=== PATIENT | male | born 1975 | race Caucasian/White ===

== ENCOUNTER 2021-03-12 13:58 | Inpatient (IN) | payer MEDICARE ==
[~2021-03-12] VITALS: Ht 177.8 cm; Wt 63.5 kg
[~2021-03-12 13:58] MED LIST: ATIVAN 1MG TABLE1 MG PO; ATIVAN1 MG PO; CEFDINIR300 MG PO; CEPHALEXIN500 MG PO; CLINDAMYCIN HC150 MG PO; COLACE100 MG PO; DOXYCYCLINE HY100 MG PO; ELIMITE 5% CREA60 GM TOP; FLECTOR TOPICAL1 EA TD; LEVAQUIN500 MG PO; METOPROLOL TART25 MG PO; NAPROSYN500 MG PO; NEURONTIN 400400 MG PO; NEURONTIN800 MG PO; NORCO 5-325 TA1 EACH PO; NORCO 7.5-3251 EACH PO; NORFLEX 100 MG100 MG PO; PHENERGAN 25 MG25 M1 PO; PREDNISONE 50 M50 MG PO; ZYRTEC10 MG PO
[2021-03-12 14:32] LABS: HEMOGLOBIN 13.4 gm/dl (14.0-17.5); RED BLOOD COUNT 4.52 M/UL (4.20-5.50); WHITE BLOOD COUNT 8.6 K/UL (4.5-11.0)
[2021-03-12 15:01] LABS: BUN/CREATININE RATIO 12 (0-10)
[2021-03-12 18:48] LABS: MONONUCLEAR CELLS 6.8 (75-100); POLYMORPHONUCLEAR % 93.2 (0-25); RBC (AUTOMATED) 12300 (0-2000); WBC (AUTOMATED) 17998 (0-200)
[2021-03-13 04:14] LABS: HEMOGLOBIN 12.8 gm/dl (14.0-17.5); RED BLOOD COUNT 4.37 M/UL (4.20-5.50); WHITE BLOOD COUNT 7.1 K/UL (4.5-11.0)
[2021-03-13 04:44] LABS: BUN/CREATININE RATIO 13 (0-10)
[2021-03-14 06:39] LABS: HEMOGLOBIN 13.2 gm/dl (14.0-17.5); RED BLOOD COUNT 4.75 M/UL (4.20-5.50)
[2021-03-14 06:52] LABS: BUN/CREATININE RATIO 16 (0-10)
[2021-03-14 11:09] LABS: PROTEIN, BODY FLUID 4.2 g/dL (.); URIC ACID, BODY FLUID 4.3 mg/dL (.)
[2021-03-15 03:07] LABS: BUN/CREATININE RATIO 10 (0-10)
[2021-03-16 05:32] LABS: BUN/CREATININE RATIO 10 (0-10)
[2021-03-17 04:28] LABS: BUN/CREATININE RATIO 12 (0-10)
[2021-03-17] MEDS ORDERED: HYDROCODON-ACE1 EAC2 PO (10:48)
[2021-03-17] MEDS ORDERED: ZYVOX600 MG PO (10:51)
[2021-03-17] MEDS ORDERED: ENDOCET 7.5-321 EACH PO (15:51)
== END 2021-03-17 18:33 | disposition home or self-care (01) | DRG 501 ==
LOC: ER1 13:58 → MED SURG 4 18:18 → CDU 18:18 → MED SURG 4 20:26
PROVIDERS: Emergency Medicine; Orthopaedic Surgery; Physician Assistant; Physician Assistant Medical; ADMIT Internal Medicine Infectious Disease
PROC: 0MBP0ZZ Excision of Left Knee Bursa and Ligament, Open Approach (ICD-10-PCS; principal; 2021-03-13 13:15)
DX: M71.162 Other infective bursitis, left knee (principal); L03.116 Cellulitis of left lower limb; I10 Essential (primary) hypertension; E87.6 Hypokalemia; F41.9 Anxiety disorder, unspecified; Z20.828 Contact with and (suspected) exposure to other viral communicable diseases; M25.462 Effusion, left knee; Z89.512 Acquired absence of left leg below knee
CPT/HCPCS: 36415; 73564; 80048; 80053; 80202; 82945; 83615; 83735; 84157; 85025; 85027; 85652; 86140; 87040; 87070; 87077; 87186; 87205; 99285; J0692; J1100; J1170; J1885; J2001; J2250; J2270; J2405; J2704; J3010; J3370; J7030; J7070; J7120; U0002

== ENCOUNTER 2021-05-12 15:47 | Inpatient (IN) | payer MEDICARE, MEDICAID ==
[~2021-05-12] VITALS: Ht 177.8 cm; Wt 63.5 kg
[~2021-05-12 15:47] MED LIST changes: +ENDOCET 7.5-321 EACH PO; +HYDROCODON-ACE1 EAC2 PO; +ZYVOX600 MG PO
[2021-05-12 17:04] LABS: HEMOGLOBIN 14.9 gm/dl (14.0-17.5); RED BLOOD COUNT 5.03 M/UL (4.20-5.50); WHITE BLOOD COUNT 9.1 K/UL (4.5-11.0)
[2021-05-12 17:17] LABS: BUN/CREATININE RATIO 10 (0-10)
[2021-05-13 06:49] LABS: HEMOGLOBIN 14.7 gm/dl (14.0-17.5); RED BLOOD COUNT 5.02 M/UL (4.20-5.50); WHITE BLOOD COUNT 6.8 K/UL (4.5-11.0)
[2021-05-13 07:48] LABS: BUN/CREATININE RATIO 12 (0-10)
--- NOTE | 2021-05-13 19:55 | NUR ---
Late Entry At 0640 I gave report to [facility] nurse Mara Hobbs in regards to suspecting that the patient was self medicating. He was falling asleep sitting up during my admission process and assessment upon arrival to floor. At one point during my shift I found him sitting Style on the bed leaned over with face in cover and his IV pulled out. I had asked the patient if he had taken anything additional to the medications that we have been giving him. He responded with "NO!" Then later wanted to speak with the powerhouse attendant Bryce Fernandez. Bryce spoke with the patient and he was calm and didn't want to pursue a complaint but that he wanted the doctor to continue his home medications of Neurontin and Hydrocodone. Dr. Patel continued the medications from his home med list that consisted of Neurontin and Hydrocodone. The patient allowed me to come in and hook his morning dose of antibiotics up after his new IV was placed. No complaints at that time. When giving report to Hazel Hobbs RN on 05/13/21 at 0640 I informed her of my suspicions and that I hadn't gave him any additional medications due to the patient not being able to stay awake. She was notified that Dr. Bennett would potentially schedule surgery today for this patient.
--- NOTE | 2021-05-13 23:03 | NUR ---
1839 OFF GOING NURSE STATED PT WAS IN BATHROOM EXCESSIVELY THROUGHOUT THE DAY AFTER SHE PROVIDED PAIN MEDICATIONS. STATED PT WAS NPO, IS GOING TO HAVE SURGERY AT SOME POINT CONSENT AND CHECKLIST NOT COMPLETE. 1844 INTRODUCED MYSELF TO PATIENT HE WAS LETHARGIC BUT EASILY AWAKED WHEN SPOKEN TOO. 1899 DURING SHIFT CHANGE ORRN ARRIVED TO TAKE PATIENT TO OR. I ASKED OFFGOING RN IF PT WAS ALL SET TO GO. SHE SHOOK HER HEAD YES. ASKED OR IF THERE WAS ANYTHING SHE NEEDED FROM ME STATED SHE WOULD GET CONSENT. WHEN PT RETURNED FROM OR. PT WAS AGITATED VERBALLY AGGRESSIVE WAS WIDE AWAKE EATING SANDWICH AND DRINKING WATER REQUESTED PAIN MEDS. PAIN MEDS NOT PROVIDED DUE TO MEDICATIONS PROVIDED IN OR PRIOR TO RETURN.
--- NOTE | 2021-05-14 01:04 | NUR ---
This RN requested assistance from Customer Specialist and Security to deesculate patient. Pt woke up called out for pain med and food. This RN was responding to another pt w/chest pain. Pt stated he did not receive food I advised pt he received food when he returned from OR we could get him something from the fridge. pt states he wants a tray advised pt he would not be able to get tray at this time as kitchen was closed. pt started swearing at this RN over call system. i requested pt stop swearing in which he continued I advised i would hang up if he did not stop and did so. I answered several calls with him being verbally aggressive. In which I contacted house and security for assistance. Pt came yelling out door, slammed door then yelled at doorway again. This RN provided meds per oct and pain medication. Pt was on phone with relative listening. Relative stated he can request a new nurse and I transferred care with another nurse.
--- NOTE | 2021-05-14 01:10 | NUR ---
Report taken from Jody Joyce RN at this time. Accepted patient under my care at this point in time.
[2021-05-14 05:34] LABS: RED BLOOD COUNT 4.75 M/UL (4.20-5.50); WHITE BLOOD COUNT 7.1 K/UL (4.5-11.0)
[2021-05-14 05:54] LABS: BUN/CREATININE RATIO 9 (0-10)
--- NOTE | 2021-05-14 12:11 | NUR ---
@1004: Dr. Mitchell notified reguarding ortho signing off on patient and patients wish to leave AMA. Dr. Mitchell stated he would "review chart". Patient notified of this at this time. @1200 nurse () notified of patient getting on elevator. Nurse () went into room and observed patient belongings gone. At this time nurse () and tech (Levy) went outside to look for patient and observed him getting into truck and leaving parking lot. Patient left with IV catheter intact. chief maintenance supervisor notifed (Marnie). [place] stated to "call patient and next of kin to explain to come back to the hospital to remove the IV catheter." Patient called and answered and then hung the phone up. Patients next of kin called at this time with no answer. chief maintenance supervisor notified again. Gray (Marnie) stated to call patient to leave voicemail. Patients voicemail box not set up and unable to leave message at this time. @ 1225 Dr. Mitchell notified reguarding patient leaving.
== END 2021-05-14 12:44 | disposition home or self-care (01) | DRG 300 ==
LOC: ER1 15:47 → M/S 18:52 → CDU 18:52 → M/S 22:15
PROVIDERS: Emergency Medicine; ADMIT Internal Medicine
DX: I96 Gangrene, not elsewhere classified (principal); M86.372 Chronic multifocal osteomyelitis, left ankle and foot; M86.371 Chronic multifocal osteomyelitis, right ankle and foot; M70.42 Prepatellar bursitis, left knee; Z20.822 Contact with and (suspected) exposure to COVID-19; I10 Essential (primary) hypertension; F41.9 Anxiety disorder, unspecified; F17.210 Nicotine dependence, cigarettes, uncomplicated; E87.6 Hypokalemia; Z53.29 Procedure and treatment not carried out because of patient's decision for other reasons; Z89.512 Acquired absence of left leg below knee; Z87.828 Personal history of other (healed) physical injury and trauma; Z82.49 Family history of ischemic heart disease and other diseases of the circulatory system
CPT/HCPCS: 36415; 71046; 73562; 80053; 80202; 83605; 85025; 85610; 85652; 85730; 86140; 86850; 86900; 86901; 87040; 96374; 96375; 99284; J0692; J1650; J2001; J2250; J2405; J2704; J3010; J3370; J7030; J7070; J7120; U0002

== ENCOUNTER 2021-08-26 13:18 | Inpatient (IN) | payer MEDICARE, MEDICAID ==
[~2021-08-26] VITALS: Ht 177.8 cm; Wt 65.8 kg
[2021-08-26 14:21] LABS: HEMOGLOBIN 14.9 gm/dl (14.0-17.5); RED BLOOD COUNT 5.09 M/UL (4.20-5.50); WHITE BLOOD COUNT 8.7 K/UL (4.5-11.0)
[2021-08-26 14:42] LABS: BUN/CREATININE RATIO 11 (0-10)
[2021-08-26] MEDS ORDERED: CYCLOBENZAPRINE10 MG PO (17:44)
[2021-08-26] MEDS ORDERED: HYDROCODON-ACE1 EAC6 PO (17:44)
[2021-08-26] MEDS ORDERED: FAMOTIDINE40 MG PO (17:45)
[2021-08-26] MEDS ORDERED: PHENERGAN 25 MG25 M1 PO (17:45)
[2021-08-27 06:43] LABS: HEMOGLOBIN 14.6 gm/dl (14.0-17.5); RED BLOOD COUNT 5.04 M/UL (4.20-5.50)
[2021-08-27 06:52] LABS: WHITE BLOOD COUNT 5.1 K/UL (4.5-11.0)
[2021-08-27 07:09] LABS: BUN/CREATININE RATIO 11 (0-10)
--- NOTE | 2021-08-27 11:15 | NUR ---
patient wound left open when Dyllan pa assess patient. applied dry dressing and secured with kerlix and tape to hold. patient samira well. left wound open- tunneled approx 2 x 2 x 4 cm with red/pink surrounding area. skin below knee callous and extremely dry. applied lotion.
--- NOTE | 2021-08-27 16:57 | NUR ---
patient have bradycardiac episode- chace auguste reported to and stated ok-no order received per chace.
[2021-08-28 07:27] LABS: HEMOGLOBIN 14.2 gm/dl (14.0-17.5); RED BLOOD COUNT 4.94 M/UL (4.20-5.50)
[2021-08-28 07:31] LABS: WHITE BLOOD COUNT 10.9 K/UL (4.5-11.0)
[2021-08-28 07:47] LABS: BUN/CREATININE RATIO 12 (0-10)
[2021-08-29 07:05] LABS: HEMOGLOBIN 13.8 gm/dl (14.0-17.5); RED BLOOD COUNT 4.93 M/UL (4.20-5.50)
[2021-08-29 07:08] LABS: WHITE BLOOD COUNT 6.2 K/UL (4.5-11.0)
[2021-08-29 07:47] LABS: BUN/CREATININE RATIO 9 (0-10)
[2021-08-29] MEDS ORDERED: PERCOCET 5/325 T1 EA PO ×2 (11:13→11:17)
[2021-08-29] MEDS ORDERED: LEVOFLOXACIN750 MG PO (11:13)
[2021-08-29] MEDS ORDERED: TYLENOL 8 HOUR650 MG PO (11:22)
[2021-08-29] MEDS ORDERED: IBUPROFEN IB200 MG PO (11:22)
[2021-08-30 07:08] LABS: WHITE BLOOD COUNT 7.1 K/UL (4.5-11.0)
[2021-08-30 07:09] LABS: HEMOGLOBIN 15.8 gm/dl (14.0-17.5); RED BLOOD COUNT 5.61 M/UL (4.20-5.50)
[2021-08-30 07:26] LABS: BUN/CREATININE RATIO 10 (0-10)
--- NOTE | 2021-08-30 15:02 | NUR ---
1215 PATIENT REFUSED TO TAKE NEW CRUTCHES, EVEN AFTER REQUESTING NEW CRUTCHES. STATED "THE CRUTCHES I ALREADY HAVE WILL BE FINE"
== END 2021-08-30 12:49 | disposition home health service (06) | DRG 501 ==
LOC: ER1 13:18 → CDU 16:46 → M/S 16:46
PROVIDERS: Orthopaedic Surgery; Physician Assistant; ADMIT Internal Medicine
PROC: 0MBP0ZZ Excision of Left Knee Bursa and Ligament, Open Approach (ICD-10-PCS; principal; 2021-08-27 14:20)
DX: M71.162 Other infective bursitis, left knee (principal); M00.862 Arthritis due to other bacteria, left knee; Z20.822 Contact with and (suspected) exposure to COVID-19; F11.10 Opioid abuse, uncomplicated; B96.4 Proteus (mirabilis) (morganii) as the cause of diseases classified elsewhere; I10 Essential (primary) hypertension; L89.151 Pressure ulcer of sacral region, stage 1; G83.89 Other specified paralytic syndromes; Z87.828 Personal history of other (healed) physical injury and trauma; Z89.512 Acquired absence of left leg below knee; Z88.1 Allergy status to other antibiotic agents
CPT/HCPCS: 36415; 73562; 80048; 80053; 81001; 82550; 82553; 83036; 83540; 83550; 83605; 83735; 83880; 85025; 85027; 85652; 86140; 87040; 87070; 87077; 87186; 87205; 96374; 96375; 99284; J0878; J1100; J1170; J1200; J1580; J1956; J2001; J2185; J2250; J2405; J2543; J2704; J3010; J3260; J3370; J7070; J7120; U0002

== ENCOUNTER 2021-12-04 15:23 | Emergency (ER) | payer MEDICARE ==
[~2021-12-04 15:23] MED LIST changes: +CYCLOBENZAPRINE10 MG PO; +FAMOTIDINE40 MG PO; +HYDROCODON-ACE1 EAC6 PO; +IBUPROFEN IB200 MG PO; +LEVOFLOXACIN750 MG PO; +PERCOCET 5/325 T1 EA PO; +TYLENOL 8 HOUR650 MG PO
[2021-12-04 16:30] LABS: RED BLOOD COUNT 5.35 M/UL (4.20-5.50); WHITE BLOOD COUNT 14.4 K/UL (4.5-11.0)
[2021-12-04 16:44] LABS: BUN/CREATININE RATIO 10 (0-10)
[2021-12-04] MEDS ORDERED: BACTRIM DS TAB1 EACH PO (21:54)
[2021-12-04] MEDS ORDERED: NAPROSYN500 MG PO (21:54)
[2021-12-04] MEDS ORDERED: CEPHALEXIN500 M1 PO (21:54)
== END 2021-12-04 22:05 | disposition home or self-care (01) ==
LOC: ER1 15:23
PROVIDERS: Physician Assistant
DX: M70.42 Prepatellar bursitis, left knee (principal); L03.116 Cellulitis of left lower limb; I10 Essential (primary) hypertension
CPT/HCPCS: 20610; 73564; 80053; 83605; 85025; 85652; 86140; 87040; 87070; 87077; 87186; 87205; 99283

== ENCOUNTER 2022-02-20 16:55 | Emergency (ER) | payer MEDICARE ==
[~2022-02-20 16:55] MED LIST changes: +BACTRIM DS TAB1 EACH PO; +CEPHALEXIN500 M1 PO
[2022-02-20 18:28] LABS: BUN/CREATININE RATIO 16 (0-10)
[2022-02-20 18:54] LABS: RED BLOOD COUNT 4.4 M/UL (4.20-5.50); WHITE BLOOD COUNT 13.9 K/UL (4.5-11.0)
[2022-02-20] MEDS ORDERED: CEPHALEXIN500 M1 PO (21:17)
== END 2022-02-20 21:30 | disposition home or self-care (01) ==
LOC: ER1 16:55
DX: L03.116 Cellulitis of left lower limb (principal); I10 Essential (primary) hypertension; Z89.512 Acquired absence of left leg below knee
CPT/HCPCS: 73590; 80053; 81001; 83605; 85025; 85652; 86140; 87040; 99283